=== PATIENT | female | born 1990 | race Caucasian/White ===

== ENCOUNTER 2017-01-02 16:26 | Emergency (ER) | payer OTHER ==
[~2017-01-02] VITALS: Ht 157.5 cm; Wt 59.0 kg
--- NOTE | ~2017-01-02 | CT114 ---
[facility] A [facility] of [facility] RADIOLOGY TEXT RESULTS PATIENT: ALESSIO TRUJILLO LOCATION: SED : 88 UNIT #: [id number] AGE: [address]: Rosie Thorpe MD SEX: F ORDER DR: [id number] [address] [address] [id number] E MR#: [id number] Acc #: [id number] NAME: ALESSIO TRUJILLO : 1990 SEX: F STUDY DATE/TIME: 01/02/2017 18:31 UNIT: SED ROOM: STUDY DESCRIPTION: CT Soft Tissue Neck W Cont Attending Physician: Rosie Thorpe M.D. Ordering Physician: Jairo Miner M.D. Primary Care Physician: No Primary Care Physician MEDICAL IMAGING REPORT This report is preliminary unless electronic signature is present. EXAM CT neck with IV contrast. HISTORY Left side neck swelling for [address] exam was performed with one or more of the following radiation dose reduction techniques: Automatic exposure control, adjustment of mA and/or kV according to patient size, and iterative reconstruction. FINDINGS IV contrast enhanced CT neck demonstrates a peripherally enhancing oval cystic mass posterior to the left mandibular angle, measuring 2.4 cm x 2.2 cm x 2.9 cm in AP, transverse and craniocaudal dimensions. Considerations include abscess, infected developmental cyst, or necrotic lymph node. No adenopathy in the remainder of the neck. The parotid and submandibular glands and thyroid gland are unremarkable. No oropharyngeal airway narrowing. No inflammatory soft tissue stranding. Mild emphysema in the partly visualized upper lobes. IMPRESSION Peripherally enhancing unilocular cyst in the left neck posterior to left mandibular angle measures 2.9 cm in maximal dimension. Considerations include abscess or infected developmental cyst or necrotic node. No adenopathy in the remainder of the neck. Dictated by... Elmer Syed M.D. [facility] A Service [facility] RADIOLOGY TEXT RESULTS PATIENT: ALESSIO TRUJILLO LOCATION: SED : 89 UNIT #: [id number] AGE: [address]: Rosie Thorpe MD SEX: F ORDER DR: THIS IS AN ELECTRONICALLY VERIFIED REPORT Elmer Syed M.D. at 01/03/2017 2:19 PM DFL/cristy TD: 01/03/2017 07:44 JOB #: [id number] MEDICAL IMAGING REPORT Page 1 of 1
[~2017-01-02 16:26] MED LIST: BENTYL20 MG PO; CHILD IBUP100 MG/51; EXCEDRIN GELTAB1 TA1; FLAGYL PO; KEFLEX500 M1 PO; NO MEDICATIONS
[2017-01-02 17:56] LABS: BASOPHIL# 0.1 X10e3 (0-0.3); BASOPHIL% 0.6 % (0-2.5); EOSINOPHIL# 0.1 X10e3 (0-0.7); EOSINOPHIL% 0.5 % (0.0-7.0); HEMATOCRIT 35.7 % (35.0-45.0); HEMOGLOBIN 12.2 gm/dL (12.0-16.0); LYMPHOCYTE# 3.5 X10e3 (1.0-3.5); LYMPHOCYTE% 26.4 % (17.0-45.0); MEAN CELL VOLUME 88.6 FL (83-96); MEAN CORPUSCULAR HEMOGLOBIN 30.2 PG (28-34); MEAN CORPUSCULAR HGB CONC 34.1 g/dL (30-36); MEAN PLATELET VOLUME 7.4 FL (6.5-11.5); MONOCYTE# 0.9 X10e3 (0-1.0); MONOCYTE% 6.9 % (3.0-12.0); NEUTROPHIL# 8.8 X10e3 (1.5-7.1); NEUTROPHIL% 65.6 % (40-75); PLATELET COUNT 348 X10e3 (140-420); RED BLOOD COUNT 4.03 X10e (3.90-5.30); WHITE BLOOD COUNT 13.3 X10e3 (4.0-10.5)
[2017-01-02 17:58] LABS: DIFF IND NO
[2017-01-02 18:15] LABS: ALBUMIN SERUM 4.5 g/dL (3.5-5.0); ALKALINE PHOSPHATASE 54 U/L (32-92); ALT (SGPT) 28 U/L (10-40); AST (SGOT) 24 U/L (10-42); BILIRUBIN,TOTAL 0.3 mg/dL (0.2-2.0); BLOOD UREA NITROGEN 7 mg/dL (9-23); CALCIUM SERUM 9.3 mg/dL (8.4-10.2); CARBON DIOXIDE 26 mmol/L (22-31); CHLORIDE 101 mmol/L (100-111); CREATININE SERUM 0.7 mg/dL (0.6-1.4); GLOM FILT RATE Estimated 118.7 mL/min (>60); GLUCOSE FASTING 103 mg/dL (70-110); POTASSIUM 3.4 mmol/L (3.5-5.1); SODIUM 136 mmol/L (135-145)
[2017-01-02 18:21] LABS: BILIRUBIN, DIRECT <0.1 mg/dL (0.0-0.2); BILIRUBIN,INDIRECT 0.2 mg/dL (0.0-0.9)
== END 2017-01-02 20:53 | disposition home or self-care (01) ==
LOC: SED 16:26
PROVIDERS: Emergency Medicine
DX: L72.9 Follicular cyst of the skin and subcutaneous tissue, unspecified (principal); F17.200 Nicotine dependence, unspecified, uncomplicated; Z98.890 Other specified postprocedural states
CPT/HCPCS: 36415; 70491; 80048; 80076; 84703; 85025; 87651; 99284; Q9967